=== PATIENT | female | born 1970 | race Caucasian/White ===

== ENCOUNTER → 2017-03-31 | Outpatient (CLI) | payer BC | LOC: FIMAGING 16:30 | PROVIDERS: ATTEND Obstetrics & Gynecology | DX: N92.0 Excessive and frequent menstruation with regular cycle (principal) | CPT/HCPCS: 76856-PO ==

== ENCOUNTER 2017-04-03 07:15 | Day surgery (SDC) | payer BC ==
[~2017-04-03 07:15] MED LIST: LR 1,000 ML IV SCH
[2017-04-03] MEDS ORDERED: PROPOFOL 200 MG/20 ML VIAL ONE (08:09)
[2017-04-03] MEDS ORDERED: fentaNYL 100 MCG/2 ML INJ ONE ×2 (08:09→09:55)
[2017-04-03] MEDS ORDERED: MIDAZOLAM 2 MG/2 ML VIAL ONE (08:36)
[2017-04-03] MEDS ORDERED: LR 1,000 ML IV ONE (08:38)
[2017-04-03] MEDS ORDERED: LIDO/EPI 1% **Not for Epidural 20 ML MDV ONE (09:08)
[2017-04-03] MEDS ORDERED: HYDROCODONE/APAP 5/325 TAB ONE (10:01)
--- NOTE | 2017-04-03 12:30 | GOP ---
[f rep st] OPERATIVE REPORT DATE OF OPERATION: 04/03/2017 SURGEON: Aileen Bruner MD QUARRYMAN: None. ANESTHESIA: LMA. PREOPERATIVE DIAGNOSIS: complex endometrial hyperplasia POSTOPERATIVE DIAGNOSIS: complex endometrial hyperplasia PROCEDURE PERFORMED: Hysteroscopy, polypectomy. FINDINGS: 3 endometrial polyps. SPECIMENS: Endometrial polyps. ESTIMATED BLOOD LOSS: Less than 10 mL. INDICATIONS: The patient is a 46-year-old female who was having menorrhagia. Had an endometrial biopsy which revealed complex endometrial hyperplasia. I recommended that the patient proceed to hysteroscopy to ensure there was no complex endometrial hyperplasia with atypia, which the patient agreed to. DESCRIPTION OF PROCEDURE: The patient was taken to the operating room. She was prepped and draped in normal sterile fashion in the high dorsal lithotomy position. A surgical time-out was performed, verifying the patient's name, date of , and procedure. The patient emptied her bladder prior to the procedure. A bivalve speculum was placed in the patient's vagina. The anterior aspect of the cervix was grasped with a single-tooth tenaculum. The patient received a paracervical block with 1% lidocaine with epinephrine of 10 mL. The cervix was dilated to 6 mm. The hysteroscope was placed into the uterine cavity and revealed 3 endometrial polyps. The TruClear morcellator was placed into the uterine cavity. The polyps were morselized with the TruClear blade. Fluid deficit was 0. The hysteroscope was removed. The bivalve speculum was removed. The single-tooth tenaculum was removed. Hemostasis was obtained with silver nitrate. The patient was stable to the recovery room and tolerated the procedure well. COMPLICATIONS: None. DISPOSITION: Stable to recovery room. /[id number]/MODL MTDD
== END 2017-04-03 11:05 | disposition home or self-care (01) ==
LOC: FSGY 07:15
PROVIDERS: ATTEND Obstetrics & Gynecology
PROC: 0UB98ZX Excision of Uterus, Via Natural or Artificial Opening Endoscopic, Diagnostic (ICD-10-PCS; principal; 2017-04-03 08:45)
DX: N92.1 Excessive and frequent menstruation with irregular cycle (principal); E03.9 Hypothyroidism, unspecified
CPT/HCPCS: 58558; C1782; J2250; J2704; J3010